=== PATIENT | female | born 1970 | race Caucasian/White ===

== ENCOUNTER 2016-12-04 17:25 | Inpatient (IN) | payer MEDICAID ==
[~2016-12-04] VITALS: Ht 157.5 cm; Wt 74.1 kg
--- NOTE | 2016-12-04 17:42 | NUR ---
PT RETURNED TO LOBBY PENDING ROOM AVAILABILITY. VSS. RESPS E/U. NO S/S OF DISTRESS NOTED. NO NEUROLOGICAL DEFICITS NOTED. PT SPEAKING IN CLEAR FULL SENTENCES.
--- NOTE | 2016-12-04 19:30 | NUR ---
RECEIVED PT FROM TRIAGE FOR C/C OF DIZZINESS AND SAMUELS. PT IS STATES THAT SHE SHE HAS THESE SYMPTOMS FOR THE LAST WEEK AND ALSO HER BLOOD PRESSURE HAS BEEN HIGH. PT IS A/O X4, SPEECH IS CLEAR, AND FOLLOWS COMMANDS. CHEST RISE AND FALL IS E/U HR AND BP IS ELEVATED. WILL CONTINUE TO MONITOR.
--- NOTE | 2016-12-04 19:35 | NUR ---
PT STATES THAT SHE NOT IS IS INFORMED OF ALL THE S/E OF MEDIACTED THAT WILL BE GIVEN.
--- NOTE | 2016-12-04 20:05 | NUR ---
XRAY AT BEDSIDE FOR CXR.
[2016-12-04 20:07] LABS: BASOPHIL % 0.3 % (0-2); PLATELET COUNT 333 x10^3mcL (130-400); RED CELL DISTRIBUTION WIDTH 12.6 % (11.5-14.5)
[2016-12-04 20:13] LABS: CALCIUM 8.4 mg/dL (8.5-10.1); CARBON DIOXIDE 24.5 mmol/L (21-32); CHLORIDE SERUM 100 mmol/L (98-107); CREATININE SERUM 0.6 mg/dL (0.6-1.0); GFR1 > 60 mL/min; GLUCOSE SERUM 252 mg/dL (74-106); POTASSIUM SERUM 3.5 mmol/L (3.5-5.1); SODIUM SERUM 137 mmol/L (136-145)
[2016-12-04 20:18] LABS: ALBUMIN 3.6 g/dL (3.4-5.0); ALKALINE PHOSPHATASE 107 U/L (46-116); ALT/SGPT 24 U/L (14-59); AST/SGOT 16 U/L (15-37); BILIRUBIN TOTAL 0.5 mg/dL (0.20-1.00)
--- NOTE | 2016-12-04 20:36 | NUR ---
PT TAKEN TO CT OF THE HEAD.
--- NOTE | 2016-12-04 22:19 | NUR ---
REPORT GIVEN TO DALLAS LEWIS FOR [facility] TRANSFER. ALL QUESTIONS AND CONCERNS ADDRESSED AT THIS TIME.
--- NOTE | 2016-12-04 22:25 | NUR ---
REC'D PT FROM ER VIA [facility]. PT IS AAOX4. DENIES DIZZINESS AND SAMUELS. TELE #34 ST GZ=[id number]. DENIES CP. RESP EVEN AND UNLABORED. NO SOB NOTED. ABD SOFT. BS ACTIVE X4. PT VOMITED X1 WHEN TRANSFERING TO ROOM. DENIES NAUSEA AFTER VOMITING. IV NOTED TO LAC. INTACT AND PATENT. ORIENTED PT TO CALL LIGHT. BED IN LOWEST POSITION. WILL ENDORSE TO PRIMARY RN.
[2016-12-04 22:27] LABS: UA SPECIFIC GRAVITY 1.025 (1.005-1.035); microscopic required? YES; urine erythrocyte 2+ (NEGATIVE)
[2016-12-04 22:42] LABS: CHOLESTEROL/HDL RATIO 3.1; MAGNESIUM 1.8 mg/dL (1.8-2.4); PHOSPHOROUS 2.7 mg/dL (2.5-4.9)
[2016-12-04 22:48] LABS: T3 TOTAL 1.05 ng/mL
[2016-12-04 22:53] LABS: FREE T4 0.93 ng/dL (0.76-1.46); FREE THYROXINE INDEX 2.6 ug/dL (1.4-4.5); T4(THYROXINE) 7.9 ug/dL (4.7-13.3)
[2016-12-04 22:56] VITALS: BP 155/87
[2016-12-05] VITALS (7 sets, daily range): BP systolic 137–176; BP diastolic 80–94
--- NOTE | 2016-12-05 00:46 | NUR ---
PT. RESTING COMFORTABLY AFTER ONE EPISODE OF EMESIS. STATED THAT HER STOACH FEELS BETTER AFTER THROWING UP. SR, 99, ON MONITOR. NO NEURO DEFICITS NOTED THUS FAR. IVF NS AT 50CC/HR. CALL LIGHT WITHIN REACH.
--- NOTE | 2016-12-05 05:42 | NUR ---
PT. C/O MILD HEADACHE, 5/10. PRN TYLENOL GIVEN. NO OTHER COMPLAINTS. DENIES DIZZINESS.
--- NOTE | 2016-12-05 07:25 | NUR ---
Pt. AAOX4 RESPIRATIONS EVEN AND UNLABORED RA C/O SLIGHT SAMUELS TOLERABLE AT THIS TIME, MEDICATED BY NIGHT RN WITH TYLENOL WILL MONITOR EFFECT. NO DISTRESS NOTED. TELE IN PLACE ST DENIES CHEST PAIN/PRESSURE. IVF IVF RUNNING TO IV LEFT AC PATENT AND INTACT. BED LOW/LOCKED. CALL LIGHT IN REACH. WILL CONTINUE TO MONITOR.
--- NOTE | 2016-12-05 07:56 | NUR ---
Pt. C/O NAUSEA, ZOFRAN ADMINISTERED WILL CONTINUE TO MONITOR.
--- NOTE | 2016-12-05 08:58 | NUR ---
Pt. C/O HEADACHE 6/10 SCALE, MOTRIN ADMINISTERED. Pt. DENIES NAUSEA POST ZOFRAN WILL CONTINUE TO MONITOR.
--- NOTE | 2016-12-05 10:31 | NUR ---
Pt. DENIES SAMUELS POST MOTRIN.
--- NOTE | 2016-12-05 12:08 | NUR ---
RECHECKED Pt. BP AT 176/94 MAP 133 HR 87 Pt. ASYMPTOMATIC DENIES PAIN/DISCOMFORT. DR. WHITE MADE AWARE, AWAITING ORDERS.
--- NOTE | 2016-12-05 14:04 | NUR ---
ADMINISTERED VASOTEC SLOW IVP TOLERATED WELL. Pt. ASYMPTOMATIC WILL CONTINUE TO MONITOR.
--- NOTE | 2016-12-05 15:25 | NUR ---
US TECH AT BEDSIDE FOR [employer] RENAL.
--- NOTE | 2016-12-05 18:10 | NUR ---
Pt. AAOX4 DENIES SAMUELS/DIZZINES. RESPIRATIONS EVEN AND UNLABORED RA. DENIES PAIN/DISCOMFORT. NO DISTRESS NOTED. TELE IN PLACE. IVF RUNNING TO IV LAC PATENT AND INTACT. DENIES N/V TOLERATED DIET WELL. BED LOW/LOCKED. CALL LIGHT IN REACH.
--- NOTE | 2016-12-05 20:00 | NUR ---
RECEIVED PT IN BED, ALERT AND ORIENTED. DENIES HEADACHE/DIZZINESS. RESP. EVEN AND UNLABORED. ON ROOM AIR, NO DISTRESS NOTED. AFEBRILE AND VITAL SIGNS STABLE. SR , HR 77 AT THIS TIME. DENIES CHEST PAIN OR PRESSURE. IVF, NS AT 100ML/HR, INTACT AND INFUSING VIA LAC, SITE CLEAR. ASSISTED WITH HS CARE. CALL LIGHT WITHIN REACH. WILL CONTINUE TO MONITOR.
--- NOTE | 2016-12-06 00:34 | NUR ---
NO COMPLAINTS NOTED AT THIS TIME. SLEEPING, EASILY AROUSABLE. NO DISTRESS NOTED. WILL CONTINUE TO MONITOR.
[2016-12-06 05:21] VITALS: BP 155/87
[2016-12-06 06:07] LABS: CALCIUM 8.2 mg/dL (8.5-10.1); CARBON DIOXIDE 27.3 mmol/L (21-32); CHLORIDE SERUM 106 mmol/L (98-107); CREATININE SERUM 0.6 mg/dL (0.6-1.0); GFR1 > 60 mL/min; GLUCOSE SERUM 177 mg/dL (74-106); POTASSIUM SERUM 4.5 mmol/L (3.5-5.1); SODIUM SERUM 138 mmol/L (136-145)
--- NOTE | 2016-12-06 06:43 | NUR ---
NO COMPLAINTS NOTED DURING THE NIGHT. SLEPT WELL. RESP. EVEN AND UNLABORED. NO DISTRESS NOTED. AFEBRILE AND VITAL SIGNS STABLE. DENIES PAIN OR ANY DISCOMFORT. DUE MEDS GIVEN ORDERED, CECIL. WELL. IVF INTACT AND INFUSING WELL, SITE CLEAR. VOIDING FREELY. WILL ENDORSE TO INCOMING NURSE.
[2016-12-06 06:55] LABS: BASOPHIL % 0.4 % (0-2); PLATELET COUNT 334 x10^3mcL (130-400); RED CELL DISTRIBUTION WIDTH 12.8 % (11.5-14.5)
--- NOTE | 2016-12-06 07:39 | NUR ---
RECEIVED AWAKE, ALERT AND ORIENTED. NO RESP. DISTRESS NOTED. NO C/O PAIN OR DISCOMFORT. BP SLIGHTLY ELEVETED. PT ASYMPTOMATIC. IVF INFUSING WELL AND SITE CLEAR. CALL LIGHT WITHIN REACH. WILL CONTINUE WITH PLAN OF CARE.
[2016-12-06 09:00] VITALS: BP 156/94
--- NOTE | 2016-12-06 09:00 | NUR ---
AM ROUNDS DONE BY DR. CABALLERO AND MEDICAL TEAM, PLAN TO DC HOME THIS AFTERNOON. PT AGREED WITH PLAN.
[2016-12-06] MEDS ORDERED: METFORMIN HCL1000 MG PO (16:26)
[2016-12-06] MEDS ORDERED: ZES20 PO (16:27)
[2016-12-06] MEDS ORDERED: MAC100 PO (16:49)
--- NOTE | 2016-12-06 18:31 | NUR ---
PT WILL BE DC'D HOME THIS PM. DC INSTRUCTIONS REVIEWED WITH PT AND SPOUSE. THEY BOTH VERBALIZED UNDERSTANDING. HL REMOVED AND SITE CLEAR. PT DENIES PAIN OR DISCOMFORT AT THIS TIME. GETTING READY TO LEAVE.
--- NOTE | 2016-12-06 18:52 | NUR ---
PT DC'D HOME IN NO DISTRESS. DENIES PAIN OR DISCOMFORT AT THE TIME OF DC.PERSONAL BELONGINGS TAKEN HOME.
== END 2016-12-06 18:38 | disposition home or self-care (01) | DRG 199 ==
LOC: ED 17:25 → DU 22:03 → MU 12-06 12:36
PROVIDERS: Emergency Medicine; ADMIT Family Medicine
DX: I16.0 Hypertensive urgency (principal); N17.0 Acute kidney failure with tubular necrosis; G93.41 Metabolic encephalopathy; E11.65 Type 2 diabetes mellitus with hyperglycemia; B37.3 Candidiasis of vulva and vagina; G43.909 Migraine, unspecified, not intractable, without status migrainosus; N39.0 Urinary tract infection, site not specified; R31.9 Hematuria, unspecified; E03.9 Hypothyroidism, unspecified; Z68.29 Body mass index [BMI] 29.0-29.9, adult
CPT/HCPCS: 82962; 83880; 84439; 85378; J0696; J1170; J2405; J3490; J7030; Q0092; Q0162

== ENCOUNTER 2019-10-24 10:46 | Emergency (ER) | payer MEDICAID ==
[~2019-10-24] VITALS: Ht 157.5 cm; Wt 77.6 kg
[~2019-10-24 10:46] MED LIST: MAC100 PO; METFORMIN HCL1000 MG PO; ZES20 PO
[2019-10-24 10:49] VITALS: Ht 157.5 cm; Wt 77.6 kg
[2019-10-24 11:44] LABS: BASOPHIL % 0.6 % (0-2); PLATELET COUNT 309 x10^3mcL (130-400); RED CELL DISTRIBUTION WIDTH 13.4 % (11.5-14.5)
[2019-10-24 12:08] LABS: CALCIUM 9.4 mg/dL (8.5-10.1); CHLORIDE SERUM 99 mmol/L (98-107); GFR1 > 60 mL/min; GLUCOSE SERUM 355 mg/dL (74-106); POTASSIUM SERUM 4.1 mmol/L (3.5-5.1); SODIUM SERUM 133 mmol/L (136-145)
[2019-10-24 12:14] LABS: ALKALINE PHOSPHATASE 87 U/L (46-116); ALT/SGPT 22 U/L (14-59); AST/SGOT 15 U/L (15-37); BILIRUBIN TOTAL 0.4 mg/dL (0.20-1.00); LIPASE 91 IU/L (73-393); TOTAL PROTEIN, SERUM 7.3 g/dL (6.4-8.2)
[2019-10-24 12:17] LABS: ALBUMIN 3.2 g/dL (3.4-5.0)
[2019-10-24 14:10] VITALS: BP 150/59
== END 2019-10-24 14:10 | disposition home or self-care (01) ==
LOC: ED 10:46
PROVIDERS: Emergency Medicine
DX: N12 Tubulo-interstitial nephritis, not specified as acute or chronic (principal); E11.65 Type 2 diabetes mellitus with hyperglycemia; N83.202 Unspecified ovarian cyst, left side; I10 Essential (primary) hypertension
CPT/HCPCS: 82962; J0696; J1885; J2405; J7030